=== PATIENT | male | born 2000 | race Caucasian/White ===

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

== ENCOUNTER 2021-07-18 14:43 | Emergency (ER) | payer OTHER | END 2021-07-18 15:21 | disposition home or self-care (01) | LOC: ER1 14:43 | DX: S63.92XA Sprain of unspecified part of left wrist and hand, initial encounter (principal); V49.9XXA Car occupant (driver) (passenger) injured in unspecified traffic accident, initial encounter | CPT/HCPCS: 73130; 99283 ==